=== PATIENT | female | born 1970 | race Caucasian/White ===

== ENCOUNTER 2018-03-07 14:30 | Emergency (ER) | payer OTHER ==
[~2018-03-07] VITALS: Ht 172.7 cm; Wt 124.7 kg
[~2018-03-07 14:30] MED LIST: ADVAIR HFA 115-12 GM INH; AMITRIPTYLINE H50 MG PO; CALCIUM 600 MG1 EACH PO; DOXYCYCLINE HY100 MG PO; FENOFIBRATE160 MG PO; IRON18 MG PO; LEVOTHYROXINE125 MCG PO; LEVOTHYROXINE137 MCG PO; LIPITOR10 MG PO; MAGNESIUM250 M1 PO; METFORMIN HCL500 MG PO; MONTELUKAST SOD10 MG PO; MULTIPLE VITAM1 EACH PO; OMEPRAZOLE20 MG PO; POTASSIUM GLUC500 MG PO; VICTOZA 2-0.6 MG/0.1 SUB-Q; VITAMIN B-12500 MC3 PO; ZINC50 M1 PO
[2018-03-07] MEDS ORDERED: NAPROSYN500 MG PO (14:50)
--- OUTSIDE RECORDS SUMMARY | 2018-03-07 15:19 | XMS | Clinical Summary ---
Demographics + + + | Home Phone | | + + + | Preferred Language | Unknown | + + + | Marital Status | Unknown | + + + | Catholic Affiliation | Unknown | + + + | Race | Unknown | + + + | Ethnic Group | Unknown | + + + Author + + + | Author | [facility] | | | and [place] | + + + | Organization | [facility] | | | and [place] | + + + | Address | Unknown | + + + | Phone | Unavailable | + + + Care Team Providers + +------+ + | Care Motion Picture Cameraman Name | Role | Phone | + +------+ + PP | Unavailable | + +------+ + Allergies Not on File Current Medications Not on file Active Problems Not on file Social History + +-------+ +--------+------+ | Tobacco Use | Types | Packs/Day | Years | Date | | | | | Used | | + +-------+ +--------+------+ | Never Assessed | | | | | + +-------+ +--------+------+ + + + | Sex Assigned at | Date Recorded | | | | + + + | Not on file | | + + + Plan of Treatment + + + + + | Health Maintenance | Due Date | Last Done | Comments | + + + + + | Vaccine: | | | | | Dtap/Tdap/Td (1 - | 7 | | | | Tdap) | | | | + + + + + | CERVICAL CANCER | | | | | SCREENING (PAP EVERY | 9 | | | | 3 YEARS 21-64 ) | | | | + + + + + | Vaccine: Influenza | | | | | (Season Ended) | 8 | | | + + + + + Results Not on filefrom Last 3 Months"
--- OUTSIDE RECORDS SUMMARY | 2018-03-07 15:19 | XMS | Clinical Summary ---
Demographics + + + | Home Phone | | + + + | Preferred Language | Unknown | + + + | Marital Status | Unknown | + + + | Jewish Affiliation | Unknown | + + + | Race | Unknown | + + + | Ethnic Group | Unknown | + + + Author + + + | Author | [facility] | | | and [place] | + + + | Organization | [facility] | | | and [place] | + + + | Address | Unknown | + + + | Phone | Unavailable | + + + Care Team Providers + +------+ + | Care Steward/Stewardess [employer] Class Name | Role | Phone | + [...]
== END 2018-03-07 15:22 | disposition home or self-care (01) ==
LOC: ED 14:30
DX: S83.411A Sprain of medial collateral ligament of right knee, initial encounter (principal); E11.9 Type 2 diabetes mellitus without complications; E78.00 Pure hypercholesterolemia, unspecified; Z91.018 Allergy to other foods; Z88.0 Allergy status to penicillin; Z88.2 Allergy status to sulfonamides; Z79.84 Long term (current) use of oral hypoglycemic drugs; Z79.899 Other long term (current) drug therapy; X50.1XXA Overexertion from prolonged static or awkward postures, initial encounter
CPT/HCPCS: 73560; 99283

== ENCOUNTER 2021-09-04 15:02 | Emergency (ER) | payer OTHER ==
[~2021-09-04] VITALS: Ht 172.7 cm; Wt 131.1 kg
[~2021-09-04 15:02] MED LIST changes: +NAPROSYN500 MG PO
--- NOTE | 2021-09-04 20:24 | EKG ---
[facility] [address] [place], [place] [address] Signed Normal sinus rhythm Normal ECG No previous ECGs available Confirmed by KERA WILLIS DO ([id number]) on 09/04/2021 8:23:49 PM Electronically Signed By: KERA WILLIS DO 09/04/212023 PATIENT NAME: SAMIRA RENO Electrocardiogram DATE OF : 66 PHYSICIAN: KERA WILLIS DO REPORT #: [id number] REPORT IS CONFIDENTIAL AND NOT TO BE RELEASED WITHOUT AUTHORIZATION
== END 2021-09-04 19:16 | disposition home or self-care (01) ==
LOC: ED 15:02
DX: R10.84 Generalized abdominal pain (principal); R07.89 Other chest pain; R79.89 Other specified abnormal findings of blood chemistry; E88.89 Other specified metabolic disorders; E11.9 Type 2 diabetes mellitus without complications; J45.909 Unspecified asthma, uncomplicated; K21.9 Gastro-esophageal reflux disease without esophagitis; Z88.2 Allergy status to sulfonamides; Z88.0 Allergy status to penicillin; Z91.018 Allergy to other foods; Z79.899 Other long term (current) drug therapy; Z79.84 Long term (current) use of oral hypoglycemic drugs
CPT/HCPCS: 71045; 74177; 80053; 81001; 83690; 83735; 84484; 84703; 85025; 93005; 93010; 99284-25; Q9967